=== PATIENT | male | born 1985 | race Caucasian/White ===

== ENCOUNTER 2017-03-17 10:26 | Inpatient (IN) | payer OTHER ==
[~2017-03-17] VITALS: Ht 180.3 cm; Wt 83.9 kg
[2017-03-17 11:30] VITALS: BP 136/77
[2017-03-17 11:45] VITALS: BP 132/71
[2017-03-17] MEDS ORDERED: AUGMENTIN 875-875 MG PO (12:04)
[2017-03-17] MEDS ORDERED: [UNRECOGNIZED DRUG - OTHER] OT (12:05)
[2017-03-17] MEDS ORDERED: POLY B OT (12:05)
[2017-03-17] MEDS ORDERED: NEO OT (12:05)
[2017-03-17] MEDS ORDERED: IBU800 MG PO (12:06)
[2017-03-17] MEDS ORDERED: EXCEDRIN MIGRAI1 TA1 PO (12:06)
[2017-03-17 13:23] LABS: BASO # 0.1 10*3/uL (0.0-0.1); BASO % 0.5 % (0.0-1.0); EOS # 0.3 10*3/uL (0.0-0.4); EOS % 2.4 % (1.0-4.0); HEMATOCRIT 42.3 % (42.0-52.0); HEMOGLOBIN 14.7 g/dl (14.0-18.0); LYMPH # 1.6 10*3/uL (1.3-4.4); LYMPH % 13.7 % (27.0-41.0); MEAN CELL VOLUME 91.4 fl (80.0-94.0); MEAN CORPUSCULAR HGB 31.7 pg (27.0-31.0); MEAN CORPUSCULAR HGB CONC 34.8 g/dl (33.0-37.0); MEAN PLATELET VOLUME 9.6 fl (9.6-12.3); MONO # 0.6 10*3/uL (0.1-1.0); MONO % 5.3 % (3.0-9.0); NEUT # 8.9 10*3/uL (2.3-7.9); NEUT % 77.8 % (47.0-73.0); PLATELET COUNT AUTOMATED 253 10*3/uL (130-400); RED BLOOD COUNT 4.63 10*6/uL (4.50-5.90); RED CELL DISTRI WIDTH 12.1 % (0-14.5); WHITE BLOOD COUNT 11.5 10*3/uL (4.8-10.8)
[2017-03-17 13:24] LABS: BILIRUBIN NEGATIVE (NEGATIVE); BLOOD NEGATIVE (NEGATIVE); CLARITY CLEAR (CLEAR); COLOR YELLOW (YELLOW); GLUCOSE NEGATIVE (NEGATIVE); KETONE NEGATIVE (NEGATIVE); LEUKO ESTERASE NEGATIVE (NEGATIVE); NITRITE NEGATIVE (NEGATIVE); PH 6.5 (5.0-9.0); PROTEIN TRACE (NEGATIVE); SPECIFIC GRAVITY 1.015 (1.005-1.030); UROBILINOGEN 0.2 E.U./dl (0.2-1.0)
[2017-03-17 13:30] LABS: PROTHROMBIN TIME 10.3 SECONDS (9.0-12.4)
[2017-03-17 13:35] LABS: URINE AMPHETAMINES < 1000 (1000ng/ml); URINE BARBITURATES < 200 (200ng/ml); URINE COCAINE < 300 (300ng/ml)
[2017-03-17 13:41] LABS: ALBUMIN 4.2 gm/dl (3.1-4.5); ALKALINE PHOSPHATASE 51 U/L (45-117); BUN 13 mg/dl (7-24); CARBON DIOXIDE 30 mmol/L (21-32); CHLORIDE 103 mmol/L (98-107); EST GLOM FILT AFRICAN AMERICAN > 60 ml/min; GLUCOSE 104 mg/dL (65-99); POTASSIUM 4.4 mmol/L (3.5-5.1); SGOT/AST 9 IU/L (3-35); SODIUM 142 mmol/L (136-145); TOTAL PROTEIN 7.6 gm/dL (6.4-8.2)
[2017-03-17 13:42] LABS: MUCOUS TRACE; RBC 0-2 rbc/hpf (0-2); URINE REFLEX COMMENT NO (NO)
[2017-03-17 13:45] LABS: SGPT/ALT 14 U/L (12-78)
[2017-03-17 16:00] VITALS: BP 151/76
[2017-03-17 20:00] VITALS: BP 135/70
[2017-03-18] VITALS: BP 137/74
[2017-03-18 08:00] VITALS: BP 121/80
[2017-03-18 12:00] VITALS: BP 125/73
[2017-03-18 16:00] VITALS: BP 128/64
[2017-03-18 20:00] VITALS: BP 136/73
[2017-03-19] VITALS: BP 129/70
[2017-03-19 08:00] VITALS: BP 118/60
[2017-03-19 12:00] VITALS: BP 158/74
[2017-03-19 16:00] VITALS: BP 164/62
[2017-03-19] MEDS ORDERED: ZOFRAN 4 MG ED2 TAB PO (18:00)
[2017-03-19] MEDS ORDERED: ATARAX,VISTARIL50 MG PO (18:00)
[2017-03-19] MEDS ORDERED: ROPINIROLE HYD0.5 MG PO (18:00)
[2017-03-19 20:00] VITALS: BP 140/82
[2017-03-20] VITALS: BP 128/64
[2017-03-20 08:00] VITALS: BP 148/72
[2017-03-20 12:00] VITALS: BP 136/72
== END 2017-03-20 14:50 | disposition home or self-care (01) | DRG 897 ==
LOC: 5E 10:26
PROVIDERS: Internal Medicine
DX: F11.23 Opioid dependence with withdrawal (principal); F32.9 Major depressive disorder, single episode, unspecified; R03.0 Elevated blood-pressure reading, without diagnosis of hypertension; H66.005 Acute suppurative otitis media without spontaneous rupture of ear drum, recurrent, left ear; M51.26 Other intervertebral disc displacement, lumbar region; G40.901 Epilepsy, unspecified, not intractable, with status epilepticus; F17.210 Nicotine dependence, cigarettes, uncomplicated; Z82.49 Family history of ischemic heart disease and other diseases of the circulatory system; Z83.79 Family history of other diseases of the digestive system; Z81.8 Family history of other mental and behavioral disorders; Z79.1 Long term (current) use of non-steroidal anti-inflammatories (NSAID); Z79.82 Long term (current) use of aspirin; Z79.899 Other long term (current) drug therapy; Z82.0 Family history of epilepsy and other diseases of the nervous system